=== PATIENT | male | born 1980 | race Caucasian/White ===

== ENCOUNTER 2016-08-18 21:17 | Emergency (ER) | payer OTHER ==
[2016-08-19 00:14] VITALS: BP 109/70
== END 2016-08-19 00:58 | disposition home or self-care (01) ==
LOC: ED 21:17
DX: S31.112A Laceration without foreign body of abdominal wall, epigastric region without penetration into peritoneal cavity, initial encounter (principal); W45.8XXA Other foreign body or object entering through skin, initial encounter; Y93.E9 Activity, other interior property and clothing maintenance; Y99.8 Other external cause status; Y92.89 Other specified places as the place of occurrence of the external cause